=== PATIENT | female | born 1935 | race Caucasian/White ===

== ENCOUNTER 2018-03-08 18:36 | Observation (INO) | payer SELFPAY ==
[2018-03-08] MEDS ORDERED: METHYLPREDNISOLONE 125 MG INJ ONE (19:29)
[2018-03-08] MEDS ORDERED: LEVALBUTEROL 1.25 MG/3 ML NEB ONE (19:30)
--- NOTE | 2018-03-08 20:12 | RAD REPORT ---
EXAM DESCRIPTION: RAD - Chest Pa And Lat (2 Views) - 03/08/2018 8:01 pm CLINICAL HISTORY: left sided chest pain;COPD;Dyspnea Chest pain. COMPARISON: No comparisons FINDINGS: The lungs are clear. The heart is moderately enlarged in size with a dual lead pacer devic e present. No displaced fractures. Moderate axial hiatal hernia. IMPRESSION: No acute abnormality is discerned. Moderate axial hiatal hernia.
[2018-03-08 20:23] LABS: ALT/SGPT 25 U/L (12-78); AST/SGOT 28 U/L (15-37); Alkaline Phosphatase 52 U/L (45-117); BUN Blood Urea Nitrogen 28 mg/dL (7-18); Bicarbonate 28 mmol/L (21-32); Bilirubin Direct 0.2 mg/dL (0-0.2); Bilirubin Total 0.4 mg/dL (0.2-1.0); Glucose Level 106 mg/dL (74-106); Lipase 315 U/L (73-393); NT PRO-BNP 2231 pg/mL (<450); Potassium 3.9 mmol/L (3.5-5.1); Protein, Total 7.7 g/dL (6.4-8.2); Sodium Level 142 mmol/L (136-145); Troponin (Emerg Dept Use Only) < 0.02 ng/mL (0.0-0.045)
[2018-03-08 21:26] LABS: Absolute Lymphocytes (CBC) 1.8 K/uL (0.7-4.9); Absolute Monocytes 2.2 K/uL (0.1-1.3); Absolute Neutrophil 5.5 K/uL (1.8-8.0); Basophils % 0.3 % (0-1.3); Eosinophils % 2.1 % (0-4.4); Hematocrit 36.3 % (36.0-45.0); Lymphocytes % 18.7 % (15.3-44.8); MCH 29.5 pg (27.0-35.0); MCV 90.3 fL (80-100); MPV 9.6 fL (7.6-11.3); Monocytes % 22.7 % (3.3-12.3); RBC Red Blood Cell Count 4.02 M/uL (3.86-4.86)
[2018-03-08] MEDS ORDERED: FUROSEMIDE 40 MG/4 ML VIAL ONE (21:42)
[2018-03-08 21:50] LABS: Blood Morphology Comment NOTED (NOT SEEN); Platelet Estimate ADEQ
[2018-03-08 21:51] LABS: Burr Cells FEW; Polychromasia SLIGHT
[2018-03-08] MEDS ORDERED: ONDANSETRON 4 MG/2 ML VIAL ONE (22:44)
--- NOTE | 2018-03-08 23:01 | ER ---
Nurse's Notes [facility] Name: Janelle Goodrich Age: 82 yrs Sex: Female : 1935 Arrival Date: 03/08/2018 Time: 18:39 Bed 17 Private MD: Diagnosis: Dyspnea, unspecified;Chronic obstructive pulmonary disease with (acute) exacerbation;Chest pain, unspecified Presentation: 03/08 18:39 Presenting complaint: Patient states: Shortness of breath for the past 2 days. Denies aj1 fever. Breath sounds with wheezes bilaterally. Transition of care: patient was not received from another setting of care. Onset of symptoms was March 06, 2018. Risk Assessment: Do you want to hurt yourself or someone else? Patient reports no desire to harm self or others. Initial Sepsis Screen: Does the patient meet any 2 criteria? No. Patient's initial sepsis screen is negative. Does the patient have a suspected source of infection? No. Patient's initial sepsis screen is negative. Care prior to arrival: None. 18:39 Method Of Arrival: Wheelchair aj1 18:39 Acuity: SILVERIO 3 aj1 Triage Assessment: 18:43 General: Appears uncomfortable, Behavior is calm, cooperative, appropriate for age. aj1 Pain: Complains of pain in back Pain currently is 10 out of 10 on a pain scale. Neuro: Level of Consciousness is awake, alert, obeys commands. Cardiovascular: Patient's skin is warm and dry. Respiratory: Reports shortness of breath Airway is patent Respiratory effort is even, labored, Breath sounds with wheezes bilaterally. Onset: The symptoms/episode began/occurred 2 days ago, the patient has moderate shortness of breath. Historical: - Allergies: 18:43 Lisinopril; aj1 18:43 pravastatin; aj1 - PMHx: 18:43 COPD; CVA; Pacemaker; aj1 - Immunization history:: Flu vaccine is up to date. - Social history:: Smoking status: Patient/guardian denies using tobacco. - Ebola Screening: : Patient denies travel to an Ebola-affected area in the 21 days before illness onset. - Family history:: not pertinent. - Hospitalizations: : No recent hospitalization is reported. Screenin:12 Abuse screen: Denies threats or abuse. Nutritional screening: No deficits noted. ea Tuberculosis screening: No symptoms or risk factors identified. Fall Risk None identified. Assessment: 19:12 General: Appears uncomfortable, Behavior is appropriate for age. Pain: Complains of ea pain in left side. Neuro: Level of Consciousness is awake, alert, obeys commands, Oriented to person, place, time, situation. Cardiovascular: Heart tones S1 S2 present Patient's skin is warm and dry. Respiratory: Airway is patent Respiratory effort is even, unlabored, Respiratory pattern is regular, symmetrical, Breath sounds are coarse bilaterally. Breath sounds with wheezes bilaterally. GI: Abdomen is non-distended. Derm: Skin is pink, warm \T\ dry. 20:55 Reassessment: Patient and/or family updated on plan of care and expected duration. Pain ea level reassessed. Patient is alert, oriented x 3, equal unlabored respirations, skin warm/dry/pink. awaiting on lab results. 21:50 Reassessment: Patient and/or family updated on plan of care and expected duration. Pain ea level reassessed. Patient is alert, oriented x 3, equal unlabored respirations, skin warm/dry/pink. 22:04 Reassessment: Patient and/or family updated on plan of care and expected duration. Pain ea level reassessed. Patient is alert, oriented x 3, equal unlabored respirations, skin warm/dry/pink. Pt taken to CT. 23:50 Reassessment: Patient and/or family updated on plan of care and expected duration. Pain ea level reassessed. Patient is alert, oriented x 3, equal unlabored respirations, skin warm/dry/pink. Awaiting on CT results. 03/09 00:28 Reassessment: Patient and/or family updated on plan of care and expected duration. Pain ea level reassessed. Patient is alert, oriented x 3, equal unlabored respirations, skin warm/dry/pink. Report called to Lottie CORRALES on second floor. Vital Signs: 03/08 18:43 BP 147 / 65; Pulse 63; Resp 28; Temp 98.6; Pulse Ox 100% on R/A; Weight 51.71 kg (R); aj1 Height 5 ft. 3 in. (160.02 cm) (R); Pain 10/10; 19:00 BP 170 / 55; Pulse 63; Resp 22; Pulse Ox 99% on 2 lpm NC; ea 20:54 BP 163 / 65; Pulse 60; Resp 20; Pulse Ox 98% ; ea 21:00 BP 144 / 57; Pulse 67; Resp 20; Pulse Ox 98% ; ea 23:00 BP 119 / 51; Pulse 68; Resp 18; Pulse Ox 98% on R/A; ea 03/09 00:00 BP 120 / 60; Pulse 70; Resp 18; Pulse Ox 98% ; ea 01:00 BP 122 / 57; Pulse 66; Resp 18; Pulse Ox 99% ; ea 03/08 18:43 Body Mass Index 20.19 (51.71 kg, 160.02 cm) aj1 ED Course: 03/08 18:39 Patient arrived in ED. aj1 18:41 Triage completed. aj1 18:43 Arm band placed on Patient placed in an exam room. aj1 19:01 Babak Dickey MD is Attending Physician. rn 19:12 Claudia Bello RN is Primary Nurse. ea 19:12 Patient has correct armband on for positive identification. Bed in low position. Call ea light in reach. Side rails up X2. 19:59 XRAY Chest Pa And Lat (2 Views) In Process Unspecified. EDMS 20:01 X-ray completed. Patient tolerated procedure well. kp1 20:15 Inserted saline lock: 22 gauge in right forearm, using aseptic technique. cc3 22:01 Radiology exam delayed due to pt is using the restroom. cw1 23:00 Ilan Rosa MD is Hospitalizing Provider. rn 23:16 CT Chest For PE Angio In Process Unspecified. EDMS 23:24 CT completed. Patient tolerated procedure well. Patient moved to CT via stretcher. Patient moved back from CT. 23:38 No provider procedures requiring assistance completed. Patient admitted, IV remains in ea place. Administered Medications: 19:22 Drug: Xopenex (3) 1.25 mg Route: Inhalation; ea 20:30 Drug: SOLU-Medrol 125 mg Route: IVP; Site: right forearm; ea 21:00 Follow up: Response: No adverse reaction ea 21:49 Drug: Lasix 40 mg Route: IVP; Site: right forearm; ea 22:00 Follow up: Response: No adverse reaction ea 22:44 Drug: Zofran 4 mg Route: IVP; Site: right forearm; ea 23:42 Follow up: Response: No adverse reaction; Marked relief of symptoms; Nausea is decreasedea Outcome: 23:00 Decision to Hospitalize by Provider. rn 23:38 Discharge instructions given to patient, family, Instructed on the need for admit. beverly 03/09 00:33 Admitted to Med/surg accompanied by tech, room 431, on monitor, Report called to Lottie paul RN Condition: stable 01:10 Patient left the ED. beverly Signatures: Dispatcher [employer] EDShirin Duke RN RN aj1 Eric Watt Roman, MD MD rn Woodley, Tanesha cw1 Lashonda Huff kp1 Claudia Bello RN RN ea Cordel, Charlene cc3
--- NOTE | 2018-03-08 23:01 | EDPHYS ---
Physician Documentation [facility] Name: Janelle Goodrich Age: 82 yrs Sex: Female : 1935 Arrival Date: 03/08/2018 Time: 18:39 Bed 17 Private MD: ED Physician Babak Dickey HPI: 03/08 19:44 This 82 yrs old Female presents to ER via Wheelchair with complaints of rn Shortness Of Breath. 19:44 The patient has shortness of breath at rest. Onset: The symptoms/episode began/occurred rn 2 day(s) ago. Duration: The symptoms are intermittent. The patient's shortness of breath is aggravated by exertion, light activity, talking, walking. Severity of symptoms: At their worst the symptoms were mild in the emergency department the symptoms are unchanged. The patient has experienced similar episodes in the past. The patient has not recently seen a physician. Reports from [place], reports sob for 2 days, intermittent, having left sided with deep breath, mild cough, and mild sob. . Historical: - Allergies: 18:43 Lisinopril; aj1 18:43 pravastatin; aj1 - PMHx: 18:43 COPD; CVA; Pacemaker; aj1 - Immunization history:: Flu vaccine is up to date. - Social history:: Smoking status: Patient/guardian denies using tobacco. - Ebola Screening: : Patient denies travel to an Ebola-affected area in the 21 days before illness onset. - Family history:: not pertinent. - Hospitalizations: : No recent hospitalization is reported. ROS: 19:44 Constitutional: Negative for fever, chills, and weight loss, Eyes: Negative for injury, rn pain, redness, and discharge, Neck: Negative for injury, pain, and swelling, Cardiovascular: + pleuritic chest pain Respiratory: + sob and cough, + pleuritic pain left side Abdomen/GI: Negative for nausea, vomiting, diarrhea, and constipation, MS/Extremity: Negative for injury and deformity, Skin: Negative for injury, rash, and discoloration, Neuro: Negative for headache, weakness, numbness, tingling, and seizure. Exam: 19:44 Constitutional: This is a well developed, well nourished patient who is awake, alert, rn + moderate tachypnea Head/Face: Normocephalic, atraumatic. Eyes: Pupils equal round and reactive to light, extra-ocular motions intact. Lids and lashes normal. Conjunctiva and sclera are non-icteric and not injected. Cornea within normal limits. Periorbital areas with no swelling, redness, or edema. ENT: MMM, no stridor Neck: Trachea midline, no thyromegaly or masses palpated, and no cervical lymphadenopathy. Supple, full range of motion without nuchal rigidity, or vertebral point tenderness. No Meningismus. Cardiovascular: Regular rate and rhythm with a normal S1 and S2. No gallops, murmurs, or rubs. Normal PMI, no JVD. No pulse deficits. Respiratory: + diminished bilateral breath sounds, faint exp wheezing, speaking 4 word sentences, no retractions Abdomen/GI: soft, mild epigastric tenderness, no rebound Skin: Warm, dry with normal turgor. Normal color with no rashes, no lesions, and no evidence of cellulitis. MS/ Extremity: Pulses equal, no cyanosis. Neurovascular intact. Full, normal range of motion. Equal circumference. Neuro: Awake and alert, GCS 15, oriented to person, place, time, and situation. Vital Signs: 18:43 BP 147 / 65; Pulse 63; Resp 28; Temp 98.6; Pulse Ox 100% on R/A; Weight 51.71 kg (R); aj1 Height 5 ft. 3 in. (160.02 cm) (R); Pain 10/10; 19:00 BP 170 / 55; Pulse 63; Resp 22; Pulse Ox 99% on 2 lpm NC; ea 20:54 BP 163 / 65; Pulse 60; Resp 20; Pulse Ox 98% ; ea 21:00 BP 144 / 57; Pulse 67; Resp 20; Pulse Ox 98% ; ea 23:00 BP 119 / 51; Pulse 68; Resp 18; Pulse Ox 98% on R/A; ea 03/09 00:00 BP 120 / 60; Pulse 70; Resp 18; Pulse Ox 98% ; ea 01:00 BP 122 / 57; Pulse 66; Resp 18; Pulse Ox 99% ; ea 03/08 18:43 Body Mass Index 20.19 (51.71 kg, 160.02 cm) aj MDM: 03/08 19:01 Patient medically screened. rn 22:58 Differential diagnosis: Anemia Anxiety Reaction CHF exacerbation, Chronic Obstructive rn Pulmonary Disease Myocardial Infarction pneumonia, Pneumothorax pulmonary edema, Pulmonary Embolism. Data reviewed: vital signs, nurses notes, lab test result(s), EKG, radiologic studies, plain films, and as a result, I will admit patient. Counseling: I had a detailed discussion with the patient and/or guardian regarding: the historical points, exam findings, and any diagnostic results supporting the discharge/admit diagnosis, lab results, radiology results, the need for further work-up and treatment in the hospital. Admission orders: after a detailed discussion of the patient's condition and case, the admit orders are written by me. ED course: Will admit to Dr. Rosa for dyspnea, still tachypneic, pending CT PE protocol that she couldn't tolerate earlier. Pt in ct right now, Dr. Rosa notified. . 03/08 19:19 Order name: Hepatic Function; Complete Time: 21:07 rn 03/08 19:19 Order name: Blood Culture Adult (2) rn 03/08 19:19 Order name: BMP; Complete Time: 21: rn 03/08 19:19 Order name: CBC with Diff; Complete Time: 22:38 rn 03/08 19:19 Order name: Lipase; Complete Time: 21:07 rn 03/08 19:19 Order name: NT PRO-BNP; Complete Time: 21: rn 03/08 19:19 Order name: XRAY Chest Pa And Lat (2 Views); Complete Time: 20:16 rn 03/08 19:19 Order name: Troponin (emerg Dept Use Only); Complete Time: 21:07 rn 03/08 21:29 Order name: Manual Differential; Complete Time: 22:38 EDMS 03/08 21:44 Order name: CT Chest For PE Angio rn 03/08 19:19 Order name: EKG; Complete Time: 19:21 rn 03/08 19:19 Order name: Cardiac monitoring; Complete Time: 21:30 rn 03/08 19:19 Order name: EKG - Nurse/Tech; Complete Time: 21:30 rn 03/08 19:19 Order name: IV Saline Lock; Complete Time: 21:30 rn 03/08 19:19 Order name: Labs collected and sent; Complete Time: 21:29 rn 03/08 19:19 Order name: O2 Per Protocol; Complete Time: 21:29 rn 03/08 19:19 Order name: O2 Sat Monitoring; Complete Time: 21:29 rn Administered Medications: : Drug: Xopenex (3) 1.25 mg Route: Inhalation; ea 20:30 Drug: SOLU-Medrol 125 mg Route: IVP; Site: right forearm; ea 21:00 Follow up: Response: No adverse reaction ea 21:49 Drug: Lasix 40 mg Route: IVP; Site: right forearm; ea 22:00 Follow up: Response: No adverse reaction ea 22:44 Drug: Zofran 4 mg Route: IVP; Site: right forearm; ea 23:42 Follow up: Response: No adverse reaction; Marked relief of symptoms; Nausea is decreasedea Disposition: 03/08/18 23:00 Hospitalization ordered by Ilan Rosa for Observation. Preliminary diagnosis are Dyspnea, unspecified, Chronic obstructive pulmonary disease with (acute) exacerbation, Chest pain, unspecified. - Bed requested for Telemetry/MedSurg (observation). - Status is Observation. ea - Condition is Stable. - Problem is new. - Symptoms have improved. UTI on Admission? No Signatures: Dispatcher [employer] EDMS Shirin Rodriguez RN RN ajBecky Rutledge RN RN mw Ballard, Brenda, RN RN bb Nieto, Roman, MD MD rn Antunez, Elena, RN RN ea Corrections: (The following items were deleted from the chart) 23:02 23:00 Hospitalization Ordered by Ilan Rosa MD for Observation. Preliminary mw diagnosis is Dyspnea, unspecified; Chronic obstructive pulmonary disease with (acute) exacerbation; Chest pain, unspecified. Bed requested for Telemetry/MedSurg (observation). Status is Observation. Condition is Stable. Problem is new. Symptoms have improved. UTI on Admission? No. rn 03/09 01:10 03/08 23:02 03/08/2018 23:00 Hospitalization Ordered by Ilan Rosa MD for ea Observation. Preliminary diagnosis is Dyspnea, unspecified; Chronic obstructive pulmonary disease with (acute) exacerbation; Chest pain, unspecified. Bed requested for Telemetry/MedSurg (observation). Status is Observation. Condition is Stable. Problem is new. Symptoms have improved. UTI on Admission? No. mw
[2018-03-09] MEDS ORDERED: ONDANSETRON 4 MG/2 ML VIAL IV PRN (01:44)
[2018-03-09] MEDS ORDERED: ACETAMINOPHEN 500 MG TAB PO PRN (01:44)
[2018-03-09] MEDS ORDERED: ALBUTEROL 2.5 MG/3 ML NEB SOL NEB ONE (03:15)
[2018-03-09] MEDS ORDERED: IPRATROPIUM BROM 0.5MG/2.5ML NEB ONE (03:16)
[2018-03-09 04:00] LABS: Urine Appearance CLEAR; Urine Bilirubin NEGATIVE (NEG); Urine Blood NEGATIVE (NEG); Urine Color YELLOW; Urine Glucose NEGATIVE (NEG); Urine Protein NEGATIVE (NEG); Urine Urobilinogen 0.2 mg/dL (0.2-1.0)
[2018-03-09 05:32] LABS: Urine Bacteria <20 /HPF (<20); Urine Culture Reflex Order NOT NEEDED; Urine RBC NONE SEEN /HPF (NONE SEEN)
--- NOTE | 2018-03-09 06:13 | EKG ---
Test Date: 2018-03-08 Test Time: 21:25:27 Ar Manager: CAMILO MEASUREMENT RESULTS: Intervals: Rate: 64 VA: QRSD: 162 QT: 488 QTc: 503 [place]: P: VA: QRS: -87 T: 86 INTERPRETIVE STATEMENTS: Ventricular-paced rhythm Abnormal ECG No previous ECG available for comparison Electronically Signed On 03-09-18 06:12:51 ADMINISTRATIVE ANALYST by Berry Karimi
[2018-03-09] MEDS: FUROSEMIDE 40 MG/4 ML VIAL IV SCH ×4 (07:48→17:12)
[2018-03-09] MEDS ORDERED: ENOXAPARIN 40 MG/0.4 ML SQ SCH (09:00)
[2018-03-09] MEDS ORDERED: POTASSIUM CL SA 10 MEQ TAB PO ONE (09:00)
[2018-03-09] MEDS: ASPIRIN EC 81 MG TAB PO SCH (09:40)
--- NOTE | 2018-03-09 10:02 | RAD REPORT ---
EXAM DESCRIPTION: CT - Chest For Pe Angio - 03/09/2018 4:35 am CLINICAL HISTORY: Chest pain. left chest pain, pleurisy COMPARISON: No comparisons TECHNIQUE: CT angiogram of the pulmonary arteries was performed with MIP. All CT scans are performed using dose optimization technique as appropriate and may include automated exposure control or mA/KV adjustment according to patient size. FINDINGS: No evidence of pulmonary thromboembolism. No acute aortic finding demonstrated. The lungs are mildly emphysematous. Subtle ground-glass opacities present both upper lobes. No significant pericardial or pleural fluid. No concerning bony finding. Moderate hiatal hernia. IMPRESSION: No evidence of pulmonary thromboembolism. COPD with mild ground-glass opacity both upper lobes, nonspecific finding. Mild interstitial pulmonar y edema, pneumonia or alveolitis may be considered.
--- NOTE | 2018-03-09 10:23 | RAD REPORT ---
EXAM DESCRIPTION: RAD - Chest Pa And Lat (2 Views) - 03/09/2018 7:26 am CLINICAL HISTORY: sob Chest pain. COMPARISON: Chest Pa And Lat (2 Views) dated 03/08/2018; Chest For Pe Angio dated 03/08/2018 FINDINGS: Mild emphysematous changes are present with linear subsegmental atelectasis in both lung b ases. The heart is moderately enlarged in size with a dual lead pacer device present. Moderate axial hiatal hernia is seen. No displaced fractures. IMPRESSION: COPD. Moderate axial hiatal hernia.
--- NOTE | 2018-03-09 13:41 | P.HP ---
Certification for Inpatient Patient admitted to: Observation With expected LOS: <2 Midnights Patient will require the following post-hospital care: None Practitioner: I am a practitioner with admitting privileges, knowledge of patient current condition, hospital course, and medical plan of care. Services: Services provided to patient in accordance with Admission requirements found in Title 42 Section 412.3 of the Code of Federal Regulations Patient History Date of Service: 03/08/18 Reason for admission: CHF; pulmonary edema History of Present Illness: Patient is an 82-year-old female who came into the hospital with shortness of breath. The patient was visiting from [place] with her family. She became dyspneic and was having a hard time breathing was brought into the emergency room. Her workup revealed she has pulmonary edema. Diuresis ER however she was still symptomatic and family did feel comfortable with taking her home so she was admitted to the hospital for further workup. Allergies lisinopril Allergy (Verified 03/09/18 01:55) Hives pravastatin Allergy (Verified 03/09/18 01:55) Hives Home Medications: Apixaban [Eliquis *] 2.5 mg PO BID 03/09/18 Carvedilol [Coreg*] 1 tab PO DAILY 03/09/18 Multivitamin [Multiple Vitamins] 1 each PO DAILY 03/09/18 Potassium Chloride [K-Dur] 20 meq PO DAILY 03/09/18 Simvastatin 40 mg PO DAILY 03/09/18 Travoprost [Travatan Z*] 1 drop EACH EYE BEDTIME 03/09/18 - Past Medical/Surgical History Has patient received pneumonia vaccine in the past: Yes Diabetic: No -: HTN -: COPD -: CVA -: Pacemaker -: Bi cataract sx - Family History Mother Medical History: Cancer - Social History Smoking Status: Former smoker Alcohol use: No CD- Drugs: No Caffeine use: Yes Place of Residence: Home Review of Systems 10-point ROS is otherwise unremarkable Physical Examination - Vital Signs Temperature: 97.9 F Blood Pressure: 111/54 Pulse: 68 Respirations: 24 Pulse Ox (%): 97 - Physical Exam General: Alert, In no apparent distress, Oriented x1, Mild distress, Confused HEENT: Atraumatic, PERRLA, Mucous membr. moist/pink, EOMI, Sclerae nonicteric Neck: Supple, 2+ carotid pulse no bruit, No LAD, Without JVD or thyroid abnormality Respiratory: Diminished, Crackles/rales Cardiovascular: Regular rate/rhythm, Normal S1 S2, Systolic murmur Gastrointestinal: Normal bowel sounds, Soft and benign, Non-distended, No tenderness Musculoskeletal: No clubbing, No swelling, No tenderness Integumentary: No rashes Neurological: Normal speech, Normal tone, Sensation intact, Cranial nerves 3-12 intact, Normal affect, Abnormal gait, Abnormal strength Lymphatics: No axilla or inguinal lymphadenopathy - Studies Laboratory Data (last 24 hrs) 03/08/18 21:11: WBC 9.7, Hgb 11.9 L, Hct 36.3, Plt Count 191 03/08/18 19:50: Sodium 142, Potassium 3.9, BUN 28 H, Creatinine 1.00, Glucose 106, Total Bilirubin 0.4, AST 28, ALT 25, Alkaline Phosphatase 52, Lipase 315 Microbiology Data (last 24 hrs): 03/08/18 19:50 Blood - Blood Anaerobic Blood Culture - Final Assessment & Plan - Problems (Diagnosis) (1) CHF exacerbation Current Visit: Yes Status: Acute (2) COPD exacerbation Current Visit: Yes Status: Acute (3) Dyspnea Current Visit: Yes Status: Acute (4) Confusion Current Visit: Yes Status: Acute - Plan 1. Echocardiogram 2. Aggressive diuresis 3. Strict I's and O's 4. Repeat CXR 5. Daily weights 6. Education regarding diet and treatment of congestive heart failure 7. nebs, steroids, and antibiotics 8. O2 per protocol. Discharge Plan: Home Plan to discharge in: Greater than 2 days - Advance Directives Does patient have a Living Will: No Does patient have a Durable POA for Healthcare: No - Code Status/Comfort Care Code Status Assessed: Yes Code Status: Full Code Critical Care: No
--- NOTE | 2018-03-09 15:30 | P.PN ---
Subjective Date of Service: 03/09/18 Chief Complaint: CHF; pulmonary edema Patient seen and examined at bedside with RN. Chart reviewed. Case discussed with cardiology and pulmonology at this time. Audible wheezing. Patient does appear to be in acute distress. Son at bedside. Review of Systems 10-point ROS is otherwise unremarkable Physical Examination - Vital Signs Temperature: 97.9 F Blood Pressure: 111/54 Pulse: 68 Respirations: 24 Pulse Ox (%): 97 - Physical Exam General: Alert, Moderate distress HEENT: Atraumatic, PERRLA, EOMI Neck: Supple, JVD not distended Respiratory: Normal air movement, Expiratory wheezes, Inspiratory wheezes, Rhonchi/gurgles Cardiovascular: Regular rate/rhythm, Normal S1 S2 Gastrointestinal: Normal bowel sounds, Soft and benign, Non-distended, No tenderness Musculoskeletal: No tenderness Integumentary: No rashes Neurological: Normal speech, Normal tone, Normal affect Lymphatics: No axilla or inguinal lymphadenopathy - Studies Laboratory Data (last 24 hrs) 03/08/18 21:11: WBC 9.7, Hgb 11.9 L, Hct 36.3, Plt Count 191 03/08/18 19:50: Sodium 142, Potassium 3.9, BUN 28 H, Creatinine 1.00, Glucose 106, Total Bilirubin 0.4, AST 28, ALT 25, Alkaline Phosphatase 52, Lipase 315 Microbiology Data (last 24 hrs): 03/08/18 19:50 Blood - Blood Anaerobic Blood Culture - Final Medications List Reviewed: Yes Assessment And Plan - Current Problems (Diagnosis) (1) COPD exacerbation Current Visit: Yes Status: Acute Plan: Acute on chronic COPD -patient uses nebs at home 3 x a day -Duonebs with Brovana here, Steroids and oxygen (2) CHF exacerbation Current Visit: Yes Status: Acute Plan: CHF exacerbation -IV lasix for now -Hold Home Bumex -Monitor for improvement -Patient with Biventricular Pacer in place -ECHO is pending Qualifiers: Heart failure type: combined systolic and diastolic Qualified Code(s): I50.43 - Acute on chronic combined systolic (congestive) and diastolic ( congestive) heart failure (3) Afib Current Visit: Yes Status: Chronic Qualifiers: Atrial fibrillation type: chronic Qualified Code(s): I48.2 - Chronic atrial fibrillation (4) HTN (hypertension) Current Visit: Yes Status: Chronic Qualifiers: Hypertension type: essential hypertension Qualified Code(s): I10 - Essential (primary) hypertension Discharge Plan: Home Plan to discharge in: 72 Hours - Code Status/Comfort Care Code Status Assessed: Yes Critical Care: No
[2018-03-09] MEDS: CARVEDILOL 3.125 MG TAB PO SCH (17:17)
[2018-03-09] MEDS: IPRATROPIUM BROM 0.5MG/2.5ML NEB SCH (20:03)
[2018-03-09] MEDS: ARFORMOTEROL TARTRATE 15 MCG/2 ML VIAL.NEB NEB SCH (20:03)
[2018-03-09] MEDS: LEVALBUTEROL 0.63 MG/3 ML NEB NEB SCH (20:03)
[2018-03-09] MEDS: APIXABAN 2.5 MG TABLET PO SCH (20:19)
[2018-03-10] MEDS: LEVALBUTEROL 0.63 MG/3 ML NEB NEB SCH ×3 (02:19→13:37)
[2018-03-10] MEDS: IPRATROPIUM BROM 0.5MG/2.5ML NEB SCH ×3 (02:19→13:37)
[2018-03-10 06:02] LABS: Magnesium 2.2 mg/dL (1.8-2.4); Phosphorus 4.5 mg/dL (2.5-4.9); Potassium 3.9 mmol/L (3.5-5.1)
[2018-03-10] MEDS: ARFORMOTEROL TARTRATE 15 MCG/2 ML VIAL.NEB NEB SCH (08:55)
[2018-03-10] MEDS ORDERED: HOME MED 1 EA UNK (Lisinopril [Lisinopril] 40 MG) PO SCH (09:00)
[2018-03-10] MEDS ORDERED: HOME MED 1 EA UNK (Simvastatin [Simvastatin] 40 MG) PO SCH (09:00)
[2018-03-10] MEDS: APIXABAN 2.5 MG TABLET PO SCH (09:27)
[2018-03-10] MEDS: CARVEDILOL 3.125 MG TAB PO SCH (09:27)
[2018-03-10] MEDS: ASPIRIN EC 81 MG TAB PO SCH (09:27)
[2018-03-10] MEDS: FUROSEMIDE 40 MG/4 ML VIAL IV SCH (09:28)
[2018-03-10] MEDS ORDERED: predniSONE 20 MG TAB PO SCH (10:38)
--- NOTE | 2018-03-10 10:43 | P.CNS ---
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 [place] compliant with her medication feeling better denies any lower extremity edema and no cough sputum hemoptysis or chest pain Allergies lisinopril Allergy (Verified 03/09/18 01:55) Hives pravastatin Allergy (Verified 03/09/18 01:55) Hives Home Medications: Apixaban [Eliquis *] 2.5 mg PO BID 03/09/18 Bumetanide 0.5 mg PO DAILY 03/09/18 Carvedilol [Coreg*] 1 tab PO DAILY 03/09/18 Dorzolamide HCl/Timolol Maleat [Cosopt Eye Drops] 1 drop EACH EYE BID 03/09/18 Ipratropium Neb [Atrovent*] 1 amp NEB TID 03/09/18 Potassium Chloride [K-Dur] 20 meq PO DAILY 03/09/18 Travoprost [Travatan Z*] 1 drop EACH EYE BEDTIME 03/09/18 - Past Medical/Surgical History Diabetic: No -: HTN -: COPD -: CVA -: Pacemaker -: Bi cataract sx - Family History Mother Medical History: Cancer - Social History Alcohol use: No CD- Drugs: No Caffeine use: Yes Place of Residence: Home Review of Systems 10-point ROS is otherwise unremarkable General: Weakness Respiratory: Shortness of Breath Physical Examination Temp Pulse Resp BP Pulse Ox 97.5 F 63 18 125/63 100 03/10/18 08:00 03/10/18 09:28 03/10/18 08:00 03/10/18 09:28 03/10/18 08:00 General: Alert, Oriented x3 HEENT: Atraumatic Neck: Supple Respiratory: Clear to auscultation bilaterally, Diminished Cardiovascular: No edema, Regular rate/rhythm, Normal S1 S2 Gastrointestinal: Normal bowel sounds, Soft and benign - Problems (1) COPD exacerbation Current Visit: Yes Status: Acute Plan: Patient is 82 years of age with a history of COPD CHF admitted with a possible COPD exacerbation chest x-ray shows cardiomegaly some baseline chronic interstitial changes suspect that she has underlying severe COPD recommend adding steroids continue with bronchodilators she does use a nebulizers 3 times a day not coordinate the use of inhalers at home check room air sats labs reviewed liver function tests are normal pro BNP is elevated probably an underlying right cor pulmonale patient is fully anti coagulated CT angiogram negative for PE or pneumonia patient does take a diuretic at home I recommend discharging her on low-dose prednisone 10 mg twice a day for 10 days there is no evidence of sepsis not sure if she has home O2 cultures all negative no evidence of of volume overload
--- NOTE | 2018-03-10 15:22 | P.DS ---
Admission Date: 03/08/18 Discharge Date: 03/10/18 Disposition: ROUTINE DISCHARGE Discharge Condition: FAIR Reason for Admission: Shortness of breath/right-sided chest discomfort - Problems (1) COPD exacerbation Current Visit: Yes Status: Acute (2) CHF exacerbation Current Visit: Yes Status: Acute Qualifiers: Heart failure type: combined systolic and diastolic Qualified Code(s): I50.43 - Acute on chronic combined systolic (congestive) and diastolic ( congestive) heart failure (3) Afib Current Visit: Yes Status: Chronic Qualifiers: Atrial fibrillation type: chronic Qualified Code(s): I48.2 - Chronic atrial fibrillation (4) HTN (hypertension) Current Visit: Yes Status: Chronic Qualifiers: Hypertension type: essential hypertension Qualified Code(s): I10 - Essential (primary) hypertension Brief History of Present Illness: Patient is an 82-year-old female who came into the hospital with shortness of breath. The patient was visiting from [place] with her family. She became dyspneic and was having a hard time breathing was brought into the emergency room. Her workup revealed she has pulmonary edema. Diuresis ER however she was still symptomatic and family did feel comfortable with taking her home so she was admitted to the hospital for further workup. Hospital Course: Overall during the hospital stay patient remained stable Patient was initially admitted to the hospital for dyspnea with acute respiratory failure most likely secondary to CHF and COPD exacerbation secondary to noncompliance with medication. Patient recently flew down here from [place] to visit her signs and had not been taking her medication for past 3 days. Patient was admitted to the hospital was given IV Lasix here in the hospital along with DuoNeb steroids and oxygen. Patient had marked improvement in her symptoms and thus was discharged home under stable condition. At home patient does have uses nebulizer 3 times a day for her COPD and was asked to continue doing that at home. Patient was qualified for home O2 here which she did not qualify for and patient also refused to get oxygen at home at this time. Patient was asked to continue taking her Bumex for her CHF and was asked to do fluid restriction while at home. Patient had a pulmonology consulted here in the hospital who recommended the patient be discharged home to continue taking her neb treatment and prednisone 10 mg b.i.d. for total of 10 days. Patient then was discharged home under stable condition was asked to continue taking all her medication as prescribed by primary care doctor along with prednisone 10 mg b.i.d. for 10 days Vital Signs/Physical Exam: Temp Pulse Resp BP Pulse Ox 98.4 F 68 18 100/41 L 91 03/10/18 12:00 03/10/18 12:00 03/10/18 12:00 03/10/18 12:00 03/10/18 12:00 General: Alert, In no apparent distress HEENT: Atraumatic, PERRLA, EOMI Neck: Supple, JVD not distended Respiratory: Clear to auscultation bilaterally, Normal air movement Cardiovascular: Regular rate/rhythm, Normal S1 S2 Gastrointestinal: Normal bowel sounds, No tenderness Musculoskeletal: No tenderness Integumentary: No rashes Neurological: Normal speech, Normal tone, Normal affect Lymphatics: No axilla or inguinal lymphadenopathy Laboratory Data at Discharge: WBC 9.7 K/uL (4.3-10.9) 03/08/18 21:11 Hgb 11.9 g/dL (12.0-15.0) L 03/08/18 21:11 Hct 36.3 % (36.0-45.0) 03/08/18 21:11 Plt Count 191 K/uL (152-406) 03/08/18 21:11 Sodium 141 mmol/L (136-145) 03/10/18 05:20 Potassium 3.9 mmol/L (3.5-5.1) 03/10/18 05:20 BUN 45 mg/dL (7-18) H 03/10/18 05:20 Creatinine 1.10 mg/dL (0.55-1.3) 03/10/18 05:20 Glucose 96 mg/dL (74-106) 03/10/18 05:20 Phosphorus 4.5 mg/dL (2.5-4.9) 03/10/18 05:20 Magnesium 2.2 mg/dL (1.8-2.4) 03/10/18 05:20 Total Bilirubin 0.4 mg/dL (0.2-1.0) 03/08/18 19:50 AST 28 U/L (15-37) 03/08/18 19:50 ALT 25 U/L (12-78) 03/08/18 19:50 Alkaline Phosphatase 52 U/L (45-117) 03/08/18 19:50 Lipase 315 U/L (73-393) 03/08/18 19:50 Home Medications: Apixaban [Eliquis *] 2.5 mg PO BID 03/09/18 Bumetanide 0.5 mg PO DAILY 03/09/18 Carvedilol [Coreg*] 1 tab PO DAILY 03/09/18 Dorzolamide HCl/Timolol Maleat [Cosopt Eye Drops] 1 drop EACH EYE BID 03/09/18 Ipratropium Neb [Atrovent*] 1 amp NEB TID 03/09/18 Potassium Chloride [K-Dur] 20 meq PO DAILY 03/09/18 Travoprost [Travatan Z*] 1 drop EACH EYE BEDTIME 03/09/18 predniSONE [Prednisone*] 10 mg PO BID #20 tab 03/10/18 New Medications: predniSONE [Prednisone*] 10 mg PO BID #20 tab Patient Discharge Instructions: Please f.u with PCP and Pulmonology in 1 to 2 days post discharge. Make sure you are taking all your medication as prescribed and doing nebs 3 times a day. New medication. Prednisone 10mg BID for 10 days Diet: Regular Activity: Ad keon
== END 2018-03-10 16:10 | disposition home or self-care (01) ==
LOC: ER 18:36 → ERHOLD 23:07 → 4TH 03-09 00:32
PROVIDERS: ADMIT Hospitalist; ATTEND Hospitalist
DX: J44.1 Chronic obstructive pulmonary disease with (acute) exacerbation (principal); I11.0 Hypertensive heart disease with heart failure; I50.43 Acute on chronic combined systolic (congestive) and diastolic (congestive) heart failure; I48.2 Chronic atrial fibrillation; Z86.73 Personal history of transient ischemic attack (TIA), and cerebral infarction without residual deficits; Z95.0 Presence of cardiac pacemaker; Z87.891 Personal history of nicotine dependence
CPT/HCPCS: 36415; 71046; 71275; 80048; 80076; 81001; 83690; 83735; 83880; 84100; 84484; 85025; 87040; 93005; 96374; 96375; 99285; G0378; J1650; J1940; J2405; J2930; J7512; J7605; Q9967